=== PATIENT | male | born 1960 | race Caucasian/White ===

== ENCOUNTER 2021-09-30 18:08 | Emergency (ER) | payer BC, SELFPAY ==
[2021-09-30 18:09] VITALS: BP 129/79; PULSE 79; RESP 16; TEMP 36.7; O2SAT 100; BMI 19.8
--- NOTE | 2021-09-30 18:20 | CT_ITS ---
INDICATION: flank pain/uti EXAMINATION: CT ABDOMEN AND PELVIS with CONTRAST - CT Abdomen And Pelvis W/ Contrast Injection TECHNIQUE: Multiple axial images were obtained of the abdomen following administration of IV contrast. Planar reconstructions obtained. A radiation dose optimization technique was used for this scan. RADIATION DOSAGE (If Supplied By Facility): CTDIvol = ( 6.50 ) mGy, DLP = ( 514.20 ) mGycm IV Contrast dosage and agent: None. Oral contrast: None. COMPARISON: None. FINDINGS: LOWER THORAX: Lungs are clear. HEPATOBILIARY: Liver: The liver is homogeneous and shows no evidence of focal lesion. Gallbladder: The gallbladder is unremarkable. Pancreas: Pancreas is normal size configuration and density. No mass is noted. Spleen: The spleen is homogeneous and normal in size. . Coarse granuloma is present. BOWEL: Stomach: The stomach is normal in size configuration, no evidence of focal masses, abnormal calcifications. No hiatal hernia noted. Bowel: Large and small bowel loops have normal configuration, however large amount retained stool is noted throughout the colon. No bowel obstruction. No mass is noted. No evidence diverticulitis or appendicitis. GENITOURINARY: Adrenals: Both adrenal glands are normal in size. Kidneys: Kidneys appear symmetric in size. No calcifications are seen in the collecting system. There is no hydronephrosis or surrounding fluid. Bladder: Bladder is moderately distended. No masses or calcifications noted. Pelvic organs: Prostate measures approximately 4.9 x 3.9 cm. No pelvic masses adenopathy or fluid collections. There are findings however consistent with a LEFT hydrocele. RETROPERITONEUM: There is normal appearance of the abdominal aorta and inferior vena cava. LYMPH NODES: No evidence of retroperitoneal or para-aortic masses fluid collections or adenopathy. PERITONEAL CAVITY: No ascites noted ANTERIOR ABDOMINAL WALL: Small fat-containing periumbilical hernia without bowel involvement. BONES AND SOFT TISSUES: The skeleton shows no evidence for fractures or destructive lesions. OTHER: None CT/Abdomen/Pelvis W IV Cont ONLY IMPRESSION: 1. Moderate to large amount retained stool throughout the colon, developing constipation is a consideration. No isra bowel obstruction. 2. No evidence of appendicitis or diverticulitis. 3. No evidence of obstructive uropathy. No renal masses noted. 4. No radiodense calcifications in the gallbladder. 5. No free fluid noted. 6. Findings consistent with a LEFT hydrocele. Electronically Signed: Solo Austin MD at 20:07 EDT ,
--- NOTE | 2021-09-30 18:21 | EDS_ITS ---
HPI History of Present Illness Chief Complaint: Back Informant: patient Narrative Narrative: 60-year-old male presenting to the emergency department bilateral flank pain. Patient self caths ever since prostate surgery about a year ago. He has had 2 prior UTIs. Due to foul-smelling urine he went to urgent care last night where he had a urinalysis that was nitrate positive leukocyte Estrace positive positive bacteria positive white cells and red cells. He states that they are waiting on a culture to prescribe an antibiotic. Today he had about 5 minutes of nausea and sweats. He then went to [facility] where he began to feel bilateral flank pain. He called his insurance company and they recommended he go back to urgent care they recommended he come to emergency [facility] Home Medications sulfamethoxazole 800 mg-trimethoprim 160 mg tablet (Bactrim DS) 1 tab PO BID #20 tabs 09/30/21 [Rx Last Taken Unknown] Allergy/AdvReac Type Severity Reaction Status Date / Time No Known Allergies Allergy Verified 09/30/21 18:11 Surgical History History of prostate surgery Social History (Updated 09/30/21 @ 18:[address] Vadim Villalta, DO) current gender identity: male Smoking Status: Never smoker substance use type: does not use ROS ROS ED Constitutional Constitutional ED: Denies chills or weight loss Eyes Eyes: Denies change in vision or diplopia ENT ENT ED: Denies ear pain, rhinorrhea or sore throat Cardiovascular Cardiovascular: Denies chest pain, orthopnea, palpitations or racing heartbeat Respiratory/Chest Respiratory/Chest: Denies cough, dyspnea or orthopnea Gastrointestinal Gastrointestinal: Reports nausea and other; Denies abdominal pain, diarrhea or vomiting Genitourinary Genitourinary ED: Reports other Details: Foul-smelling urine bilateral flank pain ; Denies dysuria, hematuria or urinary frequency Musculoskeletal Musculoskeletal: Denies arthralgias or myalgias Integumentary Denies abscess or rash Neurologic Neurologic: Denies headache(s) or weakness Psychiatric Psychiatric: Denies anxiety, depression, suicidal ideation or suicidal thoughts Endocrine Endocrinology: Denies polydipsia, polyphagia or polyuria Allergic/Immunologic Allergic/Immunologic ED: Denies mouth swelling, tongue swelling or urticaria EXAM Physical Exam Const Vital Signs: 09/30/21 18:09 Temperature 98.1 F Temperature Source Temporal Pulse Rate 79 Respiratory Rate 16 Blood Pressure 129/79 H Blood Pressure Mean 95 Pulse Ox 100 Oxygen Delivery Method Room Air Positive well nourished and well developed General Appearance ED: well developed HEENT Reports normocephalic, head/scalp atraumatic and moist mucous membranes Eyes PERRL and EOMs intact bilaterally Neck no lymphadenopathy, supple and no JVD Resp normal respiratory effort and clear to auscultation bilaterally Cardio regular rate, regular rhythm and no murmurs GI normal to inspection, nondistended, normoactive bowel sounds and non-tender Palpation: soft Back/Spine normal ROM General Back: CVA tenderness bilateral Extremity normal to inspection General Extremety ED: Negative for edema General Extremity: Negative for edema Neuro oriented x3 and CN's II-XII intact bilaterally Sensorium / Orientation: alert Motor Exam: strength 5/5 throughout Psych mental status grossly normal Mood & Affect: Negative for depressed or tearful Skin no rashes or lesions noted and no wounds MDM MDM MDM Narrative Medical decision making narrative: Patient's prior urine cultures grew out Enterococcus. Today's white count is 16.9. Creatinine normal. Lactic acid is normal. CT abdomen pelvis is negative he has an elevated white count but no fever, normal vital signs normal lactic acid not vomiting. I think it is reasonable to prescribe him antibiotics have him follow-up he does not wish pain medicine. Lab Data Attestation: I reviewed the patient's lab results. Labs: Laboratory Results - last 24 hr 09/30/21 09/30/21 09/30/21 18:35 18:35 18:35 WBC 16.9 H RBC 4.88 Hgb 15.1 Hct 44.1 MCV 90.4 MCH 30.9 MCHC 34.2 RDW Std Deviation 40.3 RDW Coeff of Jack 12.1 Plt Count 224 MPV 8.9 Immature Gran % (Auto) 0.400 Neut % (Auto) 80.6 H Lymph % (Auto) 10.9 L [place] % (Auto) 7.8 Eos % (Auto) 0.1 Baso % (Auto) 0.2 Absolute Neuts (auto) 13.6 H Absolute Lymphs (auto) 1.84 Nucleated RBC % 0 Sodium 133 L Potassium 4.0 Chloride 95 L Carbon Dioxide 32.0 Anion Gap 6 BUN 20 H Creatinine 1.06 Estim Creat Clear Calc 61.81 Est GFR (MDRD) Af Amer 91 Est GFR (MDRD) Non-Af 76 BUN/Creatinine Ratio 18.9 Glucose 107 H Lactic Acid 0.8 Calcium 8.9 Total Bilirubin 1.20 H AST 11 L ALT 22 Alkaline Phosphatase 57 Total Protein 7.1 Albumin 3.8 Globulin 3.3 Albumin/Globulin Ratio 1.2 Radiography Diagnostic Testing: Clinical Impression(s) from Imaging Studies Abdomen/Pelvis CT 09/30/21 18:20 IMPRESSION: 1. Moderate to large amount retained stool throughout the colon, developing constipation is a consideration. No isra bowel obstruction. 2. No evidence of appendicitis or diverticulitis. 3. No evidence of obstructive uropathy. No renal masses noted. 4. No radiodense calcifications in the gallbladder. 5. No free fluid noted. 6. Findings consistent with a LEFT hydrocele. Electronically Signed: Solo Austin MD at 20:07 EDT Reading Location ID and State: [facility] / [place] Tel , Service support , Discharge Plan Triage Chief Complaint: Back ED Provider: Vadim Villalta Dx/Rx/DC Orders Clinical Impression: Acute pyelonephritis Instructions: Kidney Infec Dc Prescriptions: New sulfamethoxazole-trimethoprim [Bactrim DS] 800-160 mg tablet 1 tab PO BID Qty: 20 0RF Primary Care Provider: Agustín Curtis Referrals: Agustín Curtis MD [Primary Care Provider] - As Needed Disposition Disposition: Home, Self Care
[2021-09-30 19:02] LABS: Absolute Lymphocyte Count 1.84 X10^3/uL (0.83-4.51); Absolute Neutrophil Count 13.6 X10^3/uL (2.0-7.7); Basophil# 0.04 X10^3/uL; Basophil% 0.2 % (0-1); Eosinophil# 0.01 X10^3/uL; Eosinophils% 0.1 % (0-5); Hematocrit 44.1 % (40-54); Hemoglobin 15.1 g/dL (13.0-16.5); Lymphocyte # 1.84 X10^3/ul (0.83-4.51); Lymphocyte % 10.9 % (19-41); Mean Corp Hgb Conc 34.2 g/dL (32-36); Mean Corpuscular Hgb 30.9 pg (27.0-32.0); Mean Corpuscular Volume 90.4 fL (80-94); Mean Platelet Vol. 8.9 fl (6.2-12.0); Monocyte# 1.31 X10^3/uL; Monocyte% 7.8 % (0-10); NRBC Flagged by Analyzer 0 % (0-5); Neutrophil # 13.62 X10^3/uL (2.7-7.7); Neutrophil % 80.6 % (47-70); Platelet Count 224 K/mm3 (150-450); RBC Distribution Width CV 12.1 % (11.6-14.6); RBC Distribution Width SD 40.3 fl (35.1-43.9); Red Blood Count 4.88 M/mm3 (4.6-6.2); White Blood Count 16.9 K/mm3 (4.4-11.0)
[2021-09-30 19:20] LABS: ALB/GLOB Ratio 1.2 RATIO (0.9-2.4); AST(SGOT) 11 U/L (15-37); Alanine Aminotransfer ALT/SGPT 22 U/L (16-61); Albumin, Serum 3.8 g/dL (3.2-5.0); Alkaline Phosphatase 57 U/L (45-117); Anion Gap 6 (5-15); BUN 20 mg/dL (7-18); BUN/Creat Ratio 18.9 RATIO (10-20); Calcium,Total 8.9 mg/dL (8.5-10.1); Chloride 95 mmol/L (98-107); Creatinine, Serum 1.06 mg/dL (0.70-1.30); EST Glomerular Filtration Rate 76 mL/min (>60); Est Glom Filt Rate - Afr Amer 91 mL/min (>60); Estimated Creatinine Clearance 61.81 ml/min; Globulin 3.3 g/dL (2.2-4.2); Glucose 107 mg/dL (74-106); Protein, Total 7.1 g/dL (6.4-8.2); Sodium Level 133 mmol/L (136-145)
[2021-09-30 19:31] LABS: Lactic Acid 0.8 mmol/L (0.4-1.9)
[2021-09-30 21:08] VITALS: BP 129/73; PULSE 80; TEMP 37.6
== END 2021-09-30 21:14 | disposition home or self-care (01) ==
PROVIDERS: Emergency Provider Emergency Medicine; PCP Family Medicine; Visit Provider Emergency Medicine
DX: N10 Acute pyelonephritis (principal); Z87.440 Personal history of urinary (tract) infections
CPT/HCPCS: 74177; 80053; 83605; 85025; 87040; 99283; Q9967; A4216